=== PATIENT | female | born 1965 | race Caucasian/White ===

== ENCOUNTER → 2016-06-27 | Outpatient (CLI) | payer OTHER ==
--- NOTE | 2016-06-28 07:01 | RADONC ---
RADIATION ONCOLOGY CONSULTATION NOTE DATE: 06/27/2016 CHART NUMBER: [id number]. DIAGNOSIS: Right breast cancer. STAGE: IA, [id number]. ECOG PERFORMANCE STATUS: 0 CONSULTATION NOTE: Ms. Ellis is a delightful 51-year-old white female with the diagnosis of what appears to be a stage IA, [id number] well-differentiated infiltrating ductal carcinoma of the right breast who [place] status post lumpectomy and sentinel lymph node biopsy for consideration of postoperative radiation therapy for conservative breast management. HISTORY OF PRESENT ILLNESS: The patient was in her usual state of health until routine mammogram was done on 03/2016 that showed a focus of irregularity in the 12 o'clock position of the right breast. On 05/10/2016 the patient underwent a stereotactic needle biopsy of this area and pathology revealed a well differentiated infiltrating ductal carcinoma measuring approximately 5.1 mm. On 05/31/2016 the patient underwent lumpectomy and sentinel lymph node biopsy. Pathology revealed 0.7 cm of a well differentiated infiltrating ductal carcinoma. A total of three sentinel lymph nodes were sampled and all were negative for malignancy. The resection margin was negative for malignancy, but did extend to approximately 0.1 cm of the surgical specimen. The patient was deemed to be unlikely to benefit from systemic chemotherapy and is now presenting to us for consideration of postoperative radiation therapy for conservative breast management. PAST MEDICAL HISTORY: The patient's past medical history is positive for right knee surgery in 1994. ALLERGIES: The patient has no known drug allergies. SOCIAL HISTORY: The patient does not smoke cigarettes. She drinks alcohol socially. FAMILY HISTORY: The patient's family history is positive for father with prostate cancer. REVIEW OF SYSTEMS: The patient's review of systems is positive for occasional headaches and decreased energy. It is otherwise noncontributory. She denies nausea, vomiting, fevers, chills, night sweats, diplopia, headaches, anxiety or depression, anorexia, weight loss, visual disturbances, chest pain, urinary or bowel difficulties, bone pain, or neurological problems. PHYSICAL EXAMINATION: The patient is a well-developed, well-nourished white female in no acute distress. HEENT exam is normocephalic, atraumatic. Extraocular movements are intact. There is no palpable cervical, supraclavicular, infraclavicular, axillary, or inguinal lymphadenopathy present. Lungs are clear to auscultation and percussion. Heart has a regular rate and rhythm. Abdomen is benign with no hepatosplenomegaly, masses, or tenderness. Breast examination reveals no masses or discharge bilaterally. Skeletal examination reveals no tenderness to pressure or percussion of the bony skeleton. Extremities reveal no clubbing, cyanosis, or edema. Neurologic exam is grossly intact, as is the remainder of the physical examination. ASSESSMENT: Clearly the patient is a candidate for external beam radiation therapy and I have so informed her. I have discussed with the patient in detail the potential benefits as well as possible acute and chronic sequelae of external beam radiation therapy. We have discussed the logistics of treatment planning, simulation and subsequent fractionated daily radiation treatments. I have scheduled the patient for the next available simulation slot and radiation treatments will begin subsequently. Thank you for allowing us to participate in the care of this very pleasant woman. If can be of any further assistance or provide you with any information, please free to contact me at anytime. cc: *Adry Wynn MD *Shira Avitia MD
== END ==
LOC: M ONCR 13:10
PROVIDERS: ATTEND Radiology Radiation Oncology
DX: C50.811 Malignant neoplasm of overlapping sites of right female breast (principal)

== ENCOUNTER 2016-07-06 11:53 | Outpatient (RCR) | payer OTHER ==
--- NOTE | 2016-07-06 12:35 | RADONC ---
RADIATION ONCOLOGY SIMULATION NOTE DATE: 07/06/2016 CHART NUMBER: Ms. Ellis was taken to the CT scan for CT simulation of her right breast field. CT was accomplished without difficulty or discomfort. Radiation treatment planning is underway, and radiation treatments will begin subsequently. An immobilization device was created without difficulty or discomfort. It will be used throughout the course of treatment. I was physically present throughout the course of CT simulation.
== END 2016-07-14 ==
LOC: M ONCR 11:53
PROVIDERS: ATTEND Radiology Radiation Oncology
DX: C50.811 Malignant neoplasm of overlapping sites of right female breast (principal)

== ENCOUNTER 2016-07-17 09:01 | Outpatient (RCR) | payer OTHER ==
--- NOTE | 2016-07-25 07:35 | RADONC ---
RADIATION ONCOLOGY PROGRESS NOTE DATE: 07/24/2016 CHART NUMBER: [id number]. PROGRESS NOTE: Ms. Ellis had been scheduled for initiation of radiation today. Unfortunately, due to machine breakdown, we cancelled her first fraction for today and she is now scheduled to begin radiation tomorrow.
--- NOTE | 2016-08-01 07:54 | RADONC ---
RADIATION ONCOLOGY PROGRESS NOTE DATE: 07/31/2016 CHART NUMBER: [id number]. PROGRESS NOTE: Ms. Ellis is presently a dose of 900 cGy to her right breast and is tolerating treatments quite well at this point with no complaints related to her radiation therapy. She has no breast or bone pain. REVIEW OF SYSTEMS: The patient's review of systems is noncontributory. Denies nausea, vomiting, fevers, chills, night sweats, diplopia, headaches, anxiety or depression, anorexia, weight loss, visual disturbances, chest pain, urinary or bowel difficulties, bone pain, or neurological problems. PHYSICAL EXAMINATION: The patient's skin is in good condition with no evidence of radiation change present. There is no moist or dry desquamation. The remainder of her physical exam remains unchanged. Ms. Ellis is tolerating treatments quite well and radiation will continue as scheduled.
--- NOTE | 2016-08-08 08:23 | RADONC ---
RADIATION ONCOLOGY PROGRESS NOTE DATE: 08/07/2016 CHART NUMBER: [id number] Ms. Ellis is presently at a dose of 1800 cGy to her right breast and is tolerating treatments quite well at this point with no complaints related to her radiation therapy. The patient's review of systems is noncontributory. She denies nausea, vomiting, fevers, chills, night sweats, diplopia, headaches, anxiety or depression, anorexia, weight loss, visual disturbances, chest pain, urinary or bowel difficulties, bone pain, or neurological problems. PHYSICAL EXAMINATION: The patient's skin is in good condition with no evidence of moist or dry desquamation. The remainder of her physical exam remains unchanged. Ms. Ellis is tolerating treatments quite well and radiation will continue as scheduled.
== END 2016-08-13 ==
LOC: M ONCR 09:01
PROVIDERS: ATTEND Radiology Radiation Oncology
DX: C50.811 Malignant neoplasm of overlapping sites of right female breast (principal)

== ENCOUNTER 2016-08-14 11:46 | Outpatient (RCR) | payer OTHER ==
--- NOTE | 2016-08-15 10:07 | RADONC ---
RADIATION ONCOLOGY PROGRESS NOTE DATE: 08/14/2016 CHART NUMBER: [id number] Ms. Ellis is presently at a dose of 2520 cGy to her right breast and is tolerating treatments quite well at this point with no complaints related to her radiation therapy. She is having no significant breast or bone pain. The patient's review of systems is noncontributory. She denies nausea, vomiting, fevers, chills, night sweats, diplopia, headaches, anxiety or depression, anorexia, weight loss, visual disturbances, chest pain, urinary or bowel difficulties, bone pain, or neurological problems. PHYSICAL EXAMINATION: The patient's skin is in good condition with no evidence of moist or dry desquamation. The remainder of her physical exam remains unchanged. Ms. Ellis is tolerating treatments quite well and radiation will continue as scheduled.
--- NOTE | 2016-08-22 07:33 | RADONC ---
RADIATION ONCOLOGY PROGRESS NOTE DATE: 08/21/2016 CHART NUMBER: [id number] Ms. Ellis is presently at a dose of 3420 cGy to her right breast and is tolerating treatments quite well at this point with no significant difficulties related to her radiation therapy other than some skin tenderness. The patient's review of systems is positive for skin tenderness but is otherwise noncontributory. Denies nausea, vomiting, fevers, chills, night sweats, diplopia, headaches, anxiety or depression, anorexia, weight loss, visual disturbances, chest pain, urinary or bowel difficulties, bone pain, or neurological problems. PHYSICAL EXAMINATION: The patient's skin is in good condition with no evidence of moist or dry desquamation. There is some erythema present. The remainder of physical exam remains unchanged. Ms. Ellis is tolerating treatments quite well and radiation will continue as scheduled.
--- NOTE | 2016-08-29 09:16 | RADONC ---
RADIATION ONCOLOGY SIMULATION NOTE DATE: 08/28/2016 CHART NUMBER: [id number] Ms. Ellis was taken to the linear accelerator today for clinical setup of her electron beam right breast boost field. Setup was accomplished without difficulty or discomfort. Radiation treatment planning is underway and radiation treatments will begin subsequently. An immobilization device was created and will be used throughout the course of treatment. I was physically present throughout the course of simulation.
--- NOTE | 2016-08-29 09:17 | RADONC ---
RADIATION ONCOLOGY PROGRESS NOTE DATE: 08/28/2016 CHART NUMBER: [id number]. PROGRESS NOTE: Ms. Ellis is presently at a dose of 4320 cGy to her right breast and is tolerating treatments quite well at this point with no complaints related to her radiation therapy. She has no significant breast or bone pain. REVIEW OF SYSTEMS: The patient's review of systems is generally noncontributory. Denies nausea, vomiting, fevers, chills, night sweats, diplopia, headaches, anxiety or depression, anorexia, weight loss, visual disturbances, chest pain, urinary or bowel difficulties, bone pain, or neurological problems. PHYSICAL EXAMINATION: The patient's skin is in good condition with no evidence of moist or dry desquamation. There is erythema and tanning present, specifically in her axillary and inframammary regions. The remainder of physical exam remains unchanged. Ms. Ellis is tolerating treatments quite well and radiation will continue as scheduled.
[2016-09-04] MEDS ORDERED: SILV-4 TOP (15:45)
--- NOTE | 2016-09-05 06:32 | RADONC ---
RADIATION ONCOLOGY PROGRESS NOTE: DATE: 09/04/2016 CHART NUMBER: [id number]. PROGRESS NOTE: Ms. Ellis is presently at a dose of 5260 cGy to her right breast primary site boost and is tolerating treatments quite well at this point with no significant difficulties related to her radiation therapy other than some skin discomfort. REVIEW OF SYSTEMS: The patient's review of systems is positive for some skin discomfort but is otherwise largely noncontributory. Denies nausea, vomiting, fevers, chills, night sweats, diplopia, headaches, anxiety or depression, anorexia, weight loss, visual disturbances, chest pain, urinary or bowel difficulties, bone pain, or neurological problems. PHYSICAL EXAMINATION: The patient's skin shows erythema and a small area of dry desquamation in the lateral and axillary regions. It is otherwise positive for erythema and tanning but no other evidence of moist or dry desquamation. The remainder of her physical exam remains unchanged. Ms. Ellis is tolerating treatments quite well and radiation will continue as scheduled.
--- NOTE | 2016-09-12 10:18 | RADONC ---
RADIATION ONCOLOGY TREATMENT SUMMARY DATE: 09/12/2016 CHART NUMBER: [id number] DIAGNOSIS: Right breast cancer stage I A, [id number]. ECOG performance status 0. TREATMENT SUMMARY: Ms. Ellis is a delightful 51-year-old white female with the diagnosis of what appears to be a stage I A, [id number], well-differentiated infiltrating ductal carcinoma of the right breast who presented to us status post lumpectomy and sentinel lymph node biopsy for consideration of postoperative radiation therapy for conservative breast management. We treated the patient to the right breast for a total dose of 4860 cGy delivered in 27 fractions of 180 cGy each over 37 elapsed days from 07/25/2016 through 08/31/2016. The patient's right breast was treated on a linear accelerator utilizing a 6X photon beam via 3-D conformal technique with medial and lateral tangential barbosa. Following completion of 4860 cGy the entire right breast the primary site was boosted for an additional 1200 cGy in 6 fractions of 200 cGy each from 09/01/2016 through 09/08/2016. The primary site boost was treated on a linear accelerator utilizing a 9 MEV electron beam prescribed to the 90% isodose line via a non phos technique. This brought the primary site to a total dose of 6060 cGy delivered in 33 fractions over 45 elapsed days from 07/25/2016 through 09/08/2016. Ms. Ellis tolerated her treatments quite well with no complaints related to her radiation therapy. She was able to complete therapy as prescribed without interruption. I have scheduled the patient to see me again in 1 month for further followup. She will also continue to be followed by her other physicians as well. Thank you for allowing us to participate in the care of this very pleasant woman. If I can be of any further assistance or provide you with any information, please feel free to contact me at anytime. As always warm regards. cc: Adry Wynn MD *Shira Avitia MD
== END 2016-09-13 ==
LOC: M ONCR 11:46
PROVIDERS: ATTEND Radiology Radiation Oncology
DX: C50.811 Malignant neoplasm of overlapping sites of right female breast (principal)

== ENCOUNTER → 2016-10-11 | Outpatient (CLI) | payer OTHER ==
[~2016-10-11] MED LIST: SILV-4 TOP
--- NOTE | 2016-10-12 09:28 | RADONC ---
RADIATION ONCOLOGY FOLLOWUP NOTE: DATE: 10/11/2016 CHART NUMBER: [id number] DIAGNOSIS: Right breast cancer. STAGE: I A, [id number] ECOG PERFORMANCE STATUS: 0 Ms. Ellis is a very pleasant 51-year-old white female with the diagnosis of a stage I A, T1c N0M0, well-differentiated infiltrating ductal carcinoma of the right breast who is presenting to us today for routine followup visit 1 month post completion of external beam radiation therapy. The patient presents today reporting that she is doing quite well with no complaints at this time related to her radiation therapy or disease. She has no breast or bone pain. REVIEW OF SYSTEMS: The patient's review of systems is noncontributory. She denies nausea, vomiting, fevers, chills, night sweats, diplopia, headaches, anxiety or depression, anorexia, weight loss, visual disturbances, chest pain, urinary or bowel difficulties, bone pain, or neurological problems. PHYSICAL EXAMINATION: The patient is a well-developed, well-nourished female in no acute distress. HEENT exam is normocephalic, atraumatic. Extraocular movements are intact. There is no palpable cervical, supraclavicular, infraclavicular, axillary, or inguinal lymphadenopathy present. Lungs are clear to auscultation and percussion. Heart has a regular rate and rhythm. Abdomen is benign with no hepatosplenomegaly, masses, or tenderness. Breast examination reveals no masses or discharge bilaterally. Skeletal examination reveals no tenderness to pressure or percussion of the bony skeleton. Extremities reveal no clubbing, cyanosis, or edema. Neurologic exam is grossly intact, as is the remainder of the physical examination. ASSESSMENT: The patient is clinically DAGOBERTO at this time and will be seen by us again in 6 months for further followup. She will also continue to be followed by her other physicians as well. cc: MD Adry Garcia MD
== END ==
LOC: M ONCR 15:33
PROVIDERS: ATTEND Radiology Radiation Oncology
DX: C50.811 Malignant neoplasm of overlapping sites of right female breast (principal)

== ENCOUNTER → 2017-03-28 | Outpatient (CLI) | payer OTHER ==
--- NOTE | 2017-03-29 10:33 | RADONC ---
RADIATION ONCOLOGY FOLLOWUP NOTE DATE: 03/28/2017 CHART NUMBER: [id number] DIAGNOSIS: Right breast cancer. STAGE: IA, [id number]. ECOG PERFORMANCE STATUS: 0 FOLLOWUP NOTE: Ms. Ellis is a very pleasant 52-year-old white female with the diagnosis of a stage IA, [id number], well-differentiated infiltrating ductal carcinoma of the right breast who is presenting to us today for routine followup visit 7 months post completion of external beam radiation therapy. The patient presents today reporting that she is doing quite well with no complaints at this time related to her radiation therapy or disease. She has no breast or bone pain. REVIEW OF SYSTEMS: The patient's review of systems is noncontributory. She denies nausea, vomiting, fevers, chills, night sweats, diplopia, headaches, anxiety or depression, anorexia, weight loss, visual disturbances, chest pain, urinary or bowel difficulties, bone pain, or neurological problems. PHYSICAL EXAMINATION: The patient is a well-developed, well-nourished white female in no acute distress. HEENT exam is normocephalic, atraumatic. Extraocular movements are intact. There is no palpable cervical, supraclavicular, infraclavicular, axillary, or inguinal lymphadenopathy present. Lungs are clear to auscultation and percussion. Heart has a regular rate and rhythm. Abdomen is benign with no hepatosplenomegaly, masses, or tenderness. Breast examination reveals no masses or discharge bilaterally. Skeletal examination reveals no tenderness to pressure or percussion of the bony skeleton. Extremities reveal no clubbing, cyanosis, or edema. Neurologic exam is grossly intact, as is the remainder of the physical examination. ASSESSMENT: The patient is clinically DAGOBERTO at this time. She is being seen every 3 months in [place] by her surgeon and medical oncologist. In light of her close followup there I have discharged her from our followup except on a p.r.n. basis. cc: MD Adry Garcia MD
== END ==
LOC: M ONCR 14:50
PROVIDERS: ATTEND Radiology Radiation Oncology
DX: Z08 Encounter for follow-up examination after completed treatment for malignant neoplasm (principal); Z85.3 Personal history of malignant neoplasm of breast

== ENCOUNTER 2022-09-02 21:21 | Emergency (ER) | payer OTHER ==
[~2022-09-02] VITALS: Ht 160 cm; Wt 64.5 kg
[2022-09-02 21:23] VITALS: BP 131/70
== END 2022-09-02 22:41 | disposition home or self-care (01) ==
LOC: M ED 21:21
DX: K94.23 Gastrostomy malfunction (principal); G12.21 Amyotrophic lateral sclerosis; Z79.899 Other long term (current) drug therapy